=== PATIENT | female | born 1955 | race Caucasian/White ===

== ENCOUNTER 2018-11-30 00:29 | Emergency (ER) | payer OTHER ==
[~2018-11-30] VITALS: Ht 157.5 cm; Wt 60.8 kg
[2018-11-30 00:39] VITALS: Ht 157.5 cm; Wt 60.8 kg
[2018-11-30 01:15] LABS: BASOPHIL % 0.5 % (0-2); PLATELET COUNT 352 x10^3mcL (130-400); RED CELL DISTRIBUTION WIDTH 13.4 % (11.5-14.5)
[2018-11-30 01:52] LABS: CALCIUM 9.5 mg/dL (8.5-10.1); CARBON DIOXIDE 25.4 mmol/L (21-32); CHLORIDE SERUM 105 mmol/L (98-107); CREATININE SERUM 0.6 mg/dL (0.6-1.0); GFR1 > 60 mL/min; GLUCOSE SERUM 149 mg/dL (74-106); POTASSIUM SERUM 3.8 mmol/L (3.5-5.1); SODIUM SERUM 142 mmol/L (136-145)
[2018-11-30 02:05] LABS: ALBUMIN 4.2 g/dL (3.4-5.0); ALKALINE PHOSPHATASE 96 U/L (46-116); ALT/SGPT 28 U/L (14-59); AST/SGOT 15 U/L (15-37); BILIRUBIN TOTAL 0.5 mg/dL (0.20-1.00); FREE T4 1.01 ng/dL (0.76-1.46); LIPASE 199 IU/L (73-393); MAGNESIUM 2.2 mg/dL (1.8-2.4)
[2018-11-30 02:08] LABS: TOTAL PROTEIN, SERUM 8.6 g/dL (6.4-8.2)
[2018-11-30 02:08] LABS: microscopic required? YES; urine erythrocyte TRACE (NEGATIVE)
[2018-11-30 02:20] LABS: AMPHETAMINE QUAL UR NONE DETECTED (See below)
[2018-11-30 04:11] VITALS: BP 153/82
== END 2018-11-30 04:12 | disposition home or self-care (01) ==
LOC: ED 00:29
PROVIDERS: Emergency Medicine
DX: I47.1 Supraventricular tachycardia (principal)
CPT/HCPCS: 36415; 83880; 84439; Q0092